=== PATIENT | female | born 1970 | race Caucasian/White ===

== ENCOUNTER 2023-08-29 05:00 | Day surgery (SDC) | payer OTHER ==
[~2023-08-29] VITALS: Ht 162.6 cm; Wt 98.9 kg
[~2023-08-29 05:00] MED LIST: VANCOMYCIN HCL 1,500 MG in NS 250 ML IV ONE
[2023-08-29] MEDS ORDERED: CELECOXIB 100 MG CAPSULE ONE (05:22)
[2023-08-29] MEDS ORDERED: ACETAMINOPHEN 500 MG TABLET ONE (05:22)
[2023-08-29] MEDS ORDERED: SCOPOLAMINE HYDROBROMIDE 1 MG PATCH .72 H (TRANSDERM-SCOP) TD ONE ×2 (05:22→07:00)
[2023-08-29] MEDS ORDERED: GABAPENTIN 300 MG CAPSULE ONE (05:23)
[2023-08-29] MEDS ORDERED: oxyCODONE HCL 10 MG TAB.ER.12H PO ONE ×2 (05:23→07:00)
[2023-08-29] MEDS ORDERED: CELECOXIB 100 MG CAPSULE PO ONE (07:00)
[2023-08-29] MEDS ORDERED: ceFAZolin SODIUM 2 GM in D5W 100 ML IV ONE (07:00)
[2023-08-29] MEDS ORDERED: ACETAMINOPHEN 500 MG TABLET PO ONE (07:00)
[2023-08-29] MEDS ORDERED: ONDANSETRON 4 MG ODT TAB PO ONE (07:00)
[2023-08-29] MEDS ORDERED: GABAPENTIN 300 MG CAPSULE PO ONE (07:00)
[2023-08-29] MEDS ORDERED: POLYMYXIN B SULFATE 500,000 UNITS VIAL ONE (07:11)
[2023-08-29] MEDS ORDERED: NS IRRIG SOLN 1000 ML IR ONE (07:11)
[2023-08-29] MEDS ORDERED: PROPOFOL 200MG/ 20ML VIAL (DIPRIVAN) IV ONE (07:11)
[2023-08-29] MEDS ORDERED: ONDANSETRON HCL 4 MG/2 ML VIAL ONE (07:11)
[2023-08-29] MEDS ORDERED: SUGAMMADEX SODIUM 200 MG/2 ML VIAL IV ONE (07:11)
[2023-08-29] MEDS ORDERED: TRANEXAMIC ACID 1,000 MG/10 ML VIAL ONE (07:11)
[2023-08-29] MEDS ORDERED: LR 1,000 ML IV.SOLN IV ONE (07:11)
[2023-08-29] MEDS ORDERED: fentaNYL CITRATE/PF 100 MCG/2 ML AMP ONE (07:11)
[2023-08-29] MEDS ORDERED: ROCURONIUM BROMIDE 10 MG/ML (ZEMURON) ONE (07:11)
[2023-08-29] MEDS ORDERED: VANCOMYCIN HCL 1000 MG/VIAL IV ONE (07:11)
[2023-08-29] MEDS ORDERED: DESFLURANE 15 MIN GAS INH ONE (07:11)
[2023-08-29] MEDS ORDERED: SUCCINYLCHOLINE CHLORIDE 20 MG/ML(QUELICIN) ONE (07:11)
[2023-08-29] MEDS ORDERED: ROPIVACAINE 40 MG/20 ML AMP EP ONE (07:11)
[2023-08-29] MEDS ORDERED: MIDAZOLAM HCL 2 MG/2 ML VIAL (VERSED) ONE (07:11)
[2023-08-29] MEDS ORDERED: WATER FOR IRRIGATION,STERILE 1,000 ML IRRIG.SOLN IR ONE (07:11)
[2023-08-29] MEDS ORDERED: DEXAMETHASONE SOD PHOSPHATE 4 MG/ML VIAL ONE (07:11)
[2023-08-29] MEDS ORDERED: NS IRRIG SOLN 5000 ML IR ONE (07:11)
[2023-08-29] MEDS ORDERED: METOPROLOL TARTRATE 5 MG/5 ML VIAL ONE (07:11)
[2023-08-29] MEDS ORDERED: MORPHINE SULFATE 10MG/10ML PF AMP ONE (07:15)
[2023-08-29] MEDS ORDERED: HYDROmorphone 1 MG/ML INJ. CARTRIDGE IVP PRN (08:15)
[2023-08-29] MEDS ORDERED: LR 500 ML IV SCH (08:15)
[2023-08-29] MEDS ORDERED: MEPERIDINE HCL/PF 25 MG/ML DISP.SYRIN IVP PRN (08:15)
[2023-08-29] MEDS ORDERED: MORPHINE 4 MG INJ. 4 MG/ML VIAL IVP PRN (08:15)
[2023-08-29] MEDS ORDERED: ONDANSETRON HCL 4 MG/2 ML VIAL IVP PRN ×2 (08:15→10:30)
[2023-08-29] MEDS ORDERED: CEFAZOLIN 1 GM IVPB PREMIX 50 ML IV SCH (10:30)
[2023-08-29] MEDS ORDERED: HYDROcodone/ACETAMIN 5-325 MG TAB (NORCO/ VICODIN) PO PRN ×2 (10:30)
[2023-08-29] MEDS ORDERED: HYDROmorphone 1 MG/ML INJ. CARTRIDGE ONE (11:07)
[2023-08-29] MEDS ORDERED: IBUP100O21 PO (13:51)
[2023-08-29] MEDS ORDERED: INSU100V53 SQ (13:51)
[2023-08-29] MEDS ORDERED: METF-379 PO (13:51)
[2023-08-29] MEDS ORDERED: IBUP-1619 PO (13:51)
[2023-08-29 14:49] VITALS: BP_SYST 135; PULSE 85; RESP 18; TEMP 96.3; O2SAT 99
[2023-08-29 16:39] VITALS: BP_SYST 109; PULSE 88; RESP 18; TEMP 96.3; O2SAT 95
[2023-08-29 17:30] VITALS: BP_SYST 109; PULSE 88; RESP 18; TEMP 96.3; O2SAT 95
== END 2023-08-29 18:00 | disposition home or self-care (01) ==
LOC: SDS 05:00 → SMU 05:00 → SDS 18:00
PROVIDERS: ATTEND Orthopaedic Surgery
DX: M17.12 Unilateral primary osteoarthritis, left knee (principal); E11.9 Type 2 diabetes mellitus without complications; E66.9 Obesity, unspecified; Z68.34 Body mass index [BMI] 34.0-34.9, adult; Z79.899 Other long term (current) drug therapy
CPT/HCPCS: 27447; 97162; 82962; 86886; 86900; 86901; 36415; 73560; 97110; 97530; 97116; 88305; 88311; 64447; J3490 ×3; Q0162; J3370 ×2; J1100; J3465; J2405; J2704; J2795; J0330; J3010; J1170; J2274; J7060; J7120; J7050; C1713 ×2; C1776